=== PATIENT | female | born 1990 | race Native Hawaiian/Other Pacific Islander ===

== ENCOUNTER 2017-04-11 17:51 | Emergency (ER) | payer OTHER ==
[~2017-04-11] VITALS: Ht 165.1 cm; Wt 117.9 kg
[~2017-04-11 17:51] MED LIST: ADDERALL30 MG PO; AMBIEN5 MG PO; HYDR5TAB9 PO
[2017-04-11 18:08] VITALS: BP 122/82; TEMP 98
[2017-04-11 19:11] LABS: PLATELET COUNT 303 K/uL (152-353)
[2017-04-11 19:18] LABS: POTASSIUM 3.6 mmol/L (3.6-5.2); SODIUM 139 mmol/L (136-145)
== END 2017-04-12 00:28 | disposition home or self-care (01) ==
LOC: ED 17:51
DX: N30.01 Acute cystitis with hematuria (principal)
CPT/HCPCS: 36415; 80053; 81000; 81025; 85027; 99283; Q9963